=== PATIENT | female | born 1960 | race Caucasian/White ===

== ENCOUNTER 2024-04-12 07:58 | Day surgery (SDC) | payer OTHER ==
[2024-04-12] MEDS: Lactated Ringers 1,000 ML IV SCH (08:18)
[2024-04-12] MEDS ORDERED: fentaNYL 100 MCG/2 ML SDV ONE (09:35)
[2024-04-12] MEDS ORDERED: Propofol 200 MG/20 ML SDV ONE (09:35)
[2024-04-12] MEDS ORDERED: Midazolam 1 MG/ML 2 ML SDV ONE (09:35)
[2024-04-12 10:36] VITALS: BP 144/87; PULSE 74
== END 2024-04-12 11:13 | disposition home or self-care (01) ==
LOC: VM.SDS 07:58
PROVIDERS: ATTEND Student in an Organized Health Care Education/Training Program
DX: Z12.11 Encounter for screening for malignant neoplasm of colon (principal); D12.5 Benign neoplasm of sigmoid colon; I10 Essential (primary) hypertension; E78.5 Hyperlipidemia, unspecified; K21.9 Gastro-esophageal reflux disease without esophagitis; F32.A Depression, unspecified; J01.10 Acute frontal sinusitis, unspecified; J44.9 Chronic obstructive pulmonary disease, unspecified; F17.210 Nicotine dependence, cigarettes, uncomplicated; Z86.010 Personal history of colon polyps; Z79.899 Other long term (current) drug therapy; Z79.82 Long term (current) use of aspirin
CPT/HCPCS: 00811; 45385; J2250; J2704; J3010; J7120